=== PATIENT | male | born 1940 | race Native Hawaiian/Other Pacific Islander ===

== ENCOUNTER 2018-04-20 07:55 | Emergency (ER) | payer OTHER ==
[~2018-04-20] VITALS: Ht 172.7 cm; Wt 71.7 kg
[2018-04-20 08:04] VITALS: TEMP 97.3
[2018-04-20] MEDS ORDERED: FISH OIL1 C10 PO (08:05)
[2018-04-20] MEDS ORDERED: LIPITOR20 MG PO (08:06)
[2018-04-20] MEDS ORDERED: VITAMIN D1000 UNIT OR (08:06)
[2018-04-20] MEDS ORDERED: CLOPIDOGREL75 MG PO (08:07)
[2018-04-20] MEDS ORDERED: CARV12.5 PO (08:07)
[2018-04-20] MEDS ORDERED: NIACIN SR500 M1 PO (08:07)
[2018-04-20] MEDS ORDERED: TERAZOSIN5 MG OR (08:07)
[2018-04-20] MEDS ORDERED: HYDROCHLOROT12.5 M1 PO (08:08)
[2018-04-20] MEDS ORDERED: CHILD ASA81 MG PO (08:08)
[2018-04-20] MEDS ORDERED: XYZAL ALLERGY 245 MG PO (08:08)
[2018-04-20] MEDS ORDERED: ALBUTEROL0.083 % IN (08:09)
[2018-04-20] MEDS ORDERED: SPIRIVA IN (08:09)
[2018-04-20] MEDS ORDERED: B121000 MCG PO (08:09)
[2018-04-20] MEDS ORDERED: FURO20TA67 PO (08:09)
[2018-04-20] MEDS ORDERED: SYMBICORT1 AE1 IN (08:10)
[2018-04-20 08:32] LABS: PLATELET COUNT 155 K/uL (142-355)
[2018-04-20 08:42] LABS: POTASSIUM 2.8 mmol/L (3.6-5.2)
[2018-04-20 09:28] VITALS: BP 156/74
== END 2018-04-20 09:36 | disposition home or self-care (01) ==
LOC: ED 07:55
DX: J44.1 Chronic obstructive pulmonary disease with (acute) exacerbation (principal); J45.901 Unspecified asthma with (acute) exacerbation; R06.02 Shortness of breath
CPT/HCPCS: 80053; 83880; 85027; 85379; 94664; 99282; 99283